=== PATIENT | female | born 1990 | race Caucasian/White ===

== ENCOUNTER 2016-08-11 05:44 | Emergency (ER) ==
[2016-08-11 05:54] VITALS: BP 127/86; TEMP 97.9; BMI 24.7
[2016-08-11] MEDS ORDERED: TORADOL IM STA (05:59)
[2016-08-11] MEDS ORDERED: TORADOL ONE (06:08)
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
--- NOTE | 2016-08-11 14:11 | DI ---
EXAM: Three views of the right shoulder HISTORY: Injury COMPARISON: None available FINDINGS: There is fracture of the mid right clavicle with apex superior angulation. No other fracture or dis location is identified. IMPRESSION: Fracture of the mid right clavicle with apex superior angulation.
== END 2016-08-11 07:01 | disposition home or self-care (01) ==
LOC: ED 05:44
DX: S42.021A Displaced fracture of shaft of right clavicle, initial encounter for closed fracture (principal); V86.99XA Unspecified occupant of other special all-terrain or other off-road motor vehicle injured in nontraffic accident, initial encounter
CPT/HCPCS: 96372; 99283